=== PATIENT | female | born 1990 | race Caucasian/White ===

== ENCOUNTER 2024-06-28 07:51 | Emergency (ER) | payer OTHER ==
[~2024-06-28] VITALS: Ht 167.6 cm; Wt 68.0 kg
[2024-06-28 07:51] VITALS: BP_SYST 122; PULSE 132; RESP 28; TEMP 97.8; O2SAT 100
[2024-06-28 08:32] LABS: BASOPHILS % (AUTO) 0.4 % (0.0-2.0); EOSINOPHILS # (AUTO) 0.1 K/uL (0.0-0.4); HEMATOCRIT 37.1 % (36-48); HEMOGLOBIN 12.6 g/dL (12.0-16.0); LYMPHOCYTES # (AUTO) 1.8 K/uL (1.0-5.5); LYMPHOCYTES % (AUTO) 22.9 % (20.5-51.5); MEAN CORPUSCULAR HEMOGLOBIN 29 pg (27-31); MEAN CORPUSCULAR HGB CONC 34 % (32-36); MEAN CORPUSCULAR VOLUME 85 fL (79.0-98.0); MONOCYTES # (AUTO) 0.6 K/uL (0.0-1.0); MONOCYTES % (AUTO) 7.1 % (1.7-9.3); NEUTROPHILS # (AUTO) 5.5 K/uL (1.8-7.7); NEUTROPHILS % (AUTO) 68.6 % (40.0-70.0); PLATELET COUNT (AUTO) 451 K/uL (130-430); RED BLOOD CELL COUNT(AUTO) 4.35 MIL/uL (4.2-6.2); RED CELL DISTRIBUTION WIDTH 13.4 % (9.0-15.0)
[2024-06-28] MEDS: LORazepam 1 MG TABLET PO ONE (08:46)
[2024-06-28 08:56] LABS: ALANINE AMINOTRANSFERASE 41 U/L (12-78); ALBUMIN 4.1 g/dL (3.4-4.8); ANION GAP 18 (5-15); ASPARTATE AMINOTRANSFERASE 31 U/L (10-37); CALCIUM 9.5 mg/dL (8.4-11.0); CARBON DIOXIDE 22 mmol/L (23-29); CHLORIDE 102 mmol/L (98-107); CREATININE 1.35 mg/dL (0.55-1.30); GFR AFRICAN AMERICAN 57 mL/min (>90); GLUCOSE 176 mg/dL (74-106); HCG,QUANTITATIVE 0 mIU/ML (0-6); SODIUM SERUM 142 mmol/L (136-145); THYROID STIMULATING HORMONE 1.58 uIu/mL (0.34-4.82); TOTAL PROTEIN, SERUM 7.8 g/dL (6.4-8.3); UREA NITROGEN, BLOOD 13 mg/dL (8-21)
[2024-06-28 09:00] LABS: GFR NON AFRICAN-AMERICAN 47 mL/min (>90)
[2024-06-28 09:01] LABS: ALCOHOL, BLOOD < 3 mg/dL (<10)
[2024-06-28] MEDS: IPRATROPIUM/ALBUTEROL SULFATE 3 ML AMPUL.NEB (DUONEB) INH ONE (09:38)
[2024-06-28 09:39] VITALS: O2SAT 100
[2024-06-28] MEDS ORDERED: KCL 40 mEq in 100 mL (PREMIX) 100 ML IV ONE (09:45)
[2024-06-28] MEDS: NACL 0.9% 1,000 ML IV ONE (09:51)
[2024-06-28] MEDS: MORPHINE 4 MG INJ. 4 MG/ML VIAL IVP ONE (09:55)
[2024-06-28] MEDS: ONDANSETRON HCL 4 MG/2 ML VIAL IVP ONE (09:55)
[2024-06-28] MEDS: POTASSIUM CHLORIDE 20 MEQ TABLET.ER PO ONE (10:43)
[2024-06-28] MEDS ORDERED: IOHEXOL 300mgI/mL,100 ML INFUS..BTL IV ONE (11:03)
[2024-06-28 12:56] LABS: BARBITURATE, URINE NEGATIVE (NEG <=200); METHAMPHETAMINES SCREEN,URINE NEGATIVE (NEG <=500); URINE AMPHETAMINE NEGATIVE (NEG <=500); URINE METHADONE NEGATIVE (NEG <=200)
[2024-06-28 12:57] LABS: BENZODIAZEPINE, URINE POSITIVE (NEG <=150); CANNABINOID, URINE POSITIVE (NEG <=50); COCAINE, URINE NEGATIVE (NEG <=150)
[2024-06-28 12:59] LABS: OPIATE, URINE POSITIVE (NEG <=100); PHENCYCLIDINE SCREEN,URINE NEGATIVE (NEG <=25); UR TRICYCLIC ANTIDEPRESSANTS NEGATIVE (NEG <=300); URINE OXYCODONE SCREEN NEGATIVE (NEG <=100)
[2024-06-28 13:49] LABS: BILIRUBIN,URINE NEGATIVE (NEGATIVE); BLOOD, URINE 2+ (NEGATIVE); CLARITY/URINE CLEAR (CLEAR); COLOR,URINE YELLOW (YELLOW); GLUCOSE,URINE NEGATIVE (NEGATIVE); KETONES,URINE TRACE (NEGATIVE); LEUKOCYTE ESTERASE ,URINE NEGATIVE (NEGATIVE); NITRITE, URINE NEGATIVE (NEGATIVE); PROTEIN URINE NEGATIVE (NEGATIVE); UROBILINOGEN,URINE 0.2 (0.2-1.0)
[2024-06-28] MEDS ORDERED: TRAM50TA2 PO (13:54)
[2024-06-28] MEDS ORDERED: ACET-2634 PO (13:54)
[2024-06-28 14:03] LABS: BACTERIA,URINE RARE /HPF (None Seen); MUCUS,URINE None Seen /LPF (None Seen); RBC,URINE 0-3 /HPF (0-3); WBC,URINE 0-3 /HPF (0-3)
[2024-06-28 14:36] VITALS: BP_SYST 126; PULSE 76; RESP 13; TEMP 98.4; O2SAT 99
== END 2024-06-28 14:36 | disposition home or self-care (01) ==
LOC: SED 07:51
DX: F41.0 Panic disorder [episodic paroxysmal anxiety] (principal); R10.9 Unspecified abdominal pain; M54.9 Dorsalgia, unspecified; R00.0 Tachycardia, unspecified; R07.89 Other chest pain; F12.90 Cannabis use, unspecified, uncomplicated; F10.90 Alcohol use, unspecified, uncomplicated; Z79.899 Other long term (current) drug therapy; Y90.9 Presence of alcohol in blood, level not specified
CPT/HCPCS: 99285; 71275; 96374; 71045; 96361; 96375; 80307; 80053; 81001; 84702; 84443; 85025; 85379; 84484; 36415; 93005; 74176; 94640; 82948; G0482; J2405; J2270; Q9967; J7030; 81000; 81015